=== PATIENT | male | born 1990 | race Caucasian/White ===

== ENCOUNTER 2022-08-23 11:45 | Emergency (ER) | payer BC ==
[~2022-08-23] VITALS: Ht 175.3 cm; Wt 94.8 kg
[2022-08-23] MEDS ORDERED: LIDOCAINE HCL 1% LOCAL INJ 20 ML VIAL INJ STA (12:04)
[2022-08-23] MEDS ORDERED: ONDANSETRON HCL INJ 2MG/ML 2ML 2 MG/ML VIAL IV STA (12:19)
[2022-08-23] MEDS ORDERED: ONDANSETRON HCL INJ 2MG/ML 2ML 2 MG/ML VIAL ONE (12:26)
[2022-08-23] MEDS ORDERED: Morphine 4mg INJECTION 4 MG/ML INJ ONE (12:27)
[2022-08-23] MEDS ORDERED: Morphine 4mg INJECTION 4 MG/ML INJ IV ONE (12:30)
[2022-08-23] MEDS ORDERED: ACETAMINOPHEN-1 EAC4 PO (12:32)
== END 2022-08-23 12:39 | disposition home or self-care (01) ==
LOC: ER 11:50
DX: Z47.89 Encounter for other orthopedic aftercare (principal); S52.35 Comminuted fracture of shaft of radius
CPT/HCPCS: 25505; 99283; J2001; J2270; J2405

== ENCOUNTER → 2022-09-01 | Day surgery (SDC) | payer BC ==
[~2022-09-01] MED LIST: ACETAMINOPHEN-1 EAC4 PO; BUPIVACAINE 0.5%/EPI 30 ML SDV INJ ONE; FENTANYL CITRATE/PF 100MCG/2 ML INJ ONE; LIDOCAINE HCL 2% LOCAL INJ 5 ML SDV VIAL INJ ONE; MIDAZOLAM HCL 2 MG/2 ML VIAL ONE; ONDANSETRON HCL INJ 2MG/ML 2ML 2 MG/ML VIAL ONE; POVIDONE IODINE 0.05% 0.05 % ML PO ONE; PROPOFOL IV EMULSION 10 MG/ML 20 ML VIAL ONE; SEVOFLURANE INHAL SOLN 250 ML PEN BTL ONE
[2022-09-01 18:24] VITALS: BP 136/97
== END | disposition home or self-care (01) ==
LOC: OR 12:34
PROVIDERS: ATTEND Orthopaedic Surgery
DX: S52.572A Other intraarticular fracture of lower end of left radius, initial encounter for closed fracture (principal); G56.02 Carpal tunnel syndrome, left upper limb; X58.XXXA Exposure to other specified factors, initial encounter
CPT/HCPCS: 25609; 64721; C1713 ×8; J0690; J2001; J2250; J2405; J2704; J3010